=== PATIENT | male | born 1980 | race Caucasian/White ===

== ENCOUNTER 2017-09-06 06:43 | Day surgery (SDC) | payer MEDICAID ==
[~2017-09-06 06:43] MED LIST: CYMBALTA60 MG PO; NORCO 10/325 TA1 TA1 PO; OMEPRAZOLE40 MG PO; PREVACID30 MG PO
[2017-09-06 07:25] VITALS: BP 113/76; BMI 33.3
[2017-09-06] MEDS ORDERED: PERCOCET 10/3251 TA1 PO (07:39)
--- NOTE | 2017-09-06 14:00 | OP ---
PATIENT NAME: TEOFILO DUFF MEDICAL RECORD: [id number] :84 LOCATION:[facility] ADMISSION DATE: SURGEON: BERRY GIBBS, LUIS STAUFFER DATE OF OPERATION: 09/06/2017 PREOPERATIVE DIAGNOSES: SLAP lesion of the left shoulder with impingement syndrome and acromioclavicular arthritis. POSTOPERATIVE DIAGNOSES: SLAP lesion of the left shoulder with impingement syndrome and acromioclavicular arthritis. PROCEDURE: 1. Arthroscopic labral repair superior labral from anterior to posterior repair. 2. Arthroscopic distal clavicle excision done through separate incision -- 1 cm. 3. Arthroscopic subacromial decompression with acromioplasty and bursectomy. SURGEON: Luis Smart MD ANESTHESIA: General. INTRAOPERATIVE COMPLICATIONS: None. SUMMARY OF PATHOLOGIC FINDINGS: The patient did have some fraying of the superior aspect of the rotator cuff and a mild case of biceps tendinitis; however, the bicipital labral tearing was the most impressive as was the impingement and acromioclavicular arthritis. OPERATIVE SUMMARY IN DETAIL: After obtaining the appropriate preoperative orthopedic surgery consent as well as anesthetic consultation, evaluation and clearance, the patient was brought to the operating room and placed on operating table in supine position. After general laryngeal mask airway was administered, the patient was placed in a right lateral decubitus position. All pressure points were well padded to include down leg peroneal pad as well as axillary roll. The patient was held firmly to the operating table using the vacuum pack suction system. Left upper extremity and shoulder were then prepped and draped in routine sterile fashion. The arm was held in traction boom at 30 degrees of forward flexion, 30 degrees of abduction with 10 pounds of traction laterally. Arthroscopy was established in the glenohumeral joint and posterior portal. Anterior portal was established in the anterior safe interval. Diagnostic arthroscopy did reveal the above findings. Accessory tertiary portal of Sharita was created. The superior aspect of the glenoid from anterior to posterior was debrided and decorticated in preparation for SLAP repair. Lasso was used to pass FiberTapes at the 11 and 1 o'clock position and these FiberTapes were then anchored down with 2.9 short PushLocks from [employer] with excellent reapproximation of the labrum anteriorly. Residual of the intra-articular aspect was without any further pathology with the exception of minimal biceps tendonitis. Attention was then turned to the subacromial space. While on the subacromial space, Addis tissue ablation from [employer] was utilized to denude the undersurface of the acromion of all soft tissue elements. A 5.0 barrel bur was then used to perform acromioplasty at the level of acromioclavicular joint. Through a separate anterior arthroscopic portal under direct visualization, the distal clavicle was excised for 1 cm. Having completed this, the residual bursa was taken down anteriorly, posteriorly, OPERATIVE REPORT [id number] TEOFILO DUFF laterally and superiorly, some mild fraying of the rotator cuff was noted. At this point, arthroscopy portals were closed in routine interrupted fashion using 4-0 Prolene. Sterile dressings were applied. The patient was awakened and taken to recovery in stable condition. All final needle and sponge counts were correct. TRANSINT:[id number] Voice Confirmation ID: [id number] DOCUMENT ID: [id number] BERRY GIBBS, LUIS STAUFFER at 1400 CC: [id number] DICTATION DATE: 09/06/17 1224 PLUMBING TECHNICIAN: 09/06/17 1347 [facility] [address] [place] [address]
== END 2017-09-06 13:00 | disposition home or self-care (01) ==
LOC: D.OPS 06:43 → D.PAN 09:00 → D.OPS 09:10 → D.PAN 09:10 → D.OPS 13:00 → D.PAN 14:55 → D.OPS 17:00
DX: S43.432A Superior glenoid labrum lesion of left shoulder, initial encounter (principal); M75.42 Impingement syndrome of left shoulder; M19.012 Primary osteoarthritis, left shoulder; F17.200 Nicotine dependence, unspecified, uncomplicated; K21.9 Gastro-esophageal reflux disease without esophagitis; Z01.812 Encounter for preprocedural laboratory examination